=== PATIENT | male | born 1965 | race Caucasian/White ===

== ENCOUNTER 2022-09-06 14:00 | Inpatient (IN) ==
[2022-09-18] MEDS ORDERED: Lactated Ringers 1000 ml BAG 1,000 ML IV SCH (06:00)
[2022-09-18] MEDS ORDERED: Buffered Lidocaine 1% SYRIN 1 ml INTRADERM ONE (06:00)
[2022-09-18] MEDS ORDERED: ceFAZolin 2 GM in NS PREMIX 2 GM/100 ML BAG IVPB ONE (08:27)
[2022-09-18] MEDS ORDERED: ROPIVACAINE 5 MG/ML 30 ML BTL (0.5%) ONE (09:15)
[2022-09-18] MEDS ORDERED: Naloxone 0.4 mg VIAL 0.4 mg/ml 1 ml VIAL IV PRN (09:40)
[2022-09-18] MEDS ORDERED: Midazolam 5 mg/5 ml VIAL 1 mg/ml 5 ml VIAL (5 mg) ONE (09:47)
[2022-09-18] MEDS ORDERED: Phenylephrine IV 10 MG/ML 1 ml VIAL ONE (10:09)
[2022-09-18] MEDS ORDERED: Lidocaine 2% PF 5 ML VIAL ONE (10:09)
[2022-09-18] MEDS ORDERED: Ropivacaine 5 MG/ML 20 ML VIAL 0.5% (100 MG) ONE (10:36)
[2022-09-18] MEDS ORDERED: Propofol 10 MG/ML 20 ML BTL ONE ×2 (11:04→11:22)
[2022-09-18] MEDS ORDERED: Ondansetron ODT 4 mg TAB 4 MG TAB PO PRN (11:09)
[2022-09-18] MEDS ORDERED: Lactulose 30 ml UDC PO PRN (11:09)
[2022-09-18] MEDS ORDERED: Magnesium Hydroxide LIQ 30 ML UDC PO PRN (11:09)
[2022-09-18] MEDS ORDERED: Morphine 2 MG/ML SYRINGE IV PRN (11:09)
[2022-09-18] MEDS ORDERED: Ondansetron 4 mg VIAL 2 MG/ML 2 ml VIAL IV PRN (11:09)
[2022-09-18] MEDS ORDERED: Dexamethasone IV 4 MG/ML VIAL 1 ml VIAL ONE (11:33)
[2022-09-18] MEDS ORDERED: Ondansetron 4 mg VIAL 2 MG/ML 2 ml VIAL ONE (11:33)
[2022-09-18] MEDS ORDERED: Acetaminophen IV 1 GM/100ML 1,000 MG/100 ML BAG IV ONE (12:50)
[2022-09-18] MEDS ORDERED: HYDROmorphone 1 MG/1 ML SYRINGE ONE (13:28)
[2022-09-18] MEDS: HYDROmorphone 1 MG/1 ML SYRINGE IV PRN ×4 (13:32→14:04)
[2022-09-18] MEDS ORDERED: fentaNYL 100 mcg/2 ml 50 MCG/ML VIAL IV SLOW PU ONE (14:39)
[2022-09-18] MEDS ORDERED: fentaNYL 100 mcg/2 ml 50 MCG/ML VIAL ONE (14:41)
[2022-09-18] MEDS: Lactated Ringers 1000 ml BAG 1,000 ML IV SCH (16:40)
[2022-09-18] MEDS: ceFAZolin 1 GM ADVAN 1 GM in NS 0.9% 50 ML 50 ML IVPB SCH (19:00)
[2022-09-18] MEDS: Magnesium Hydroxide LIQ 30 ML UDC PO SCH (20:52)
[2022-09-19] MEDS: ceFAZolin 1 GM ADVAN 1 GM in NS 0.9% 50 ML 50 ML IVPB SCH ×2 (02:52→10:00)
[2022-09-19] MEDS: Lactated Ringers 1000 ml BAG 1,000 ML IV SCH (02:55)
[2022-09-19 06:06] LABS: Hematocrit 36 % (42-52); Hemoglobin 12.1 g/dL (14.0-18.0); Platelet Count 357 10^3/uL (150-450)
[2022-09-19 06:26] LABS: Calcium 9.1 mg/dL (8.6-10.3); Creatinine, Serum 0.66 mg/dL (0.67-1.17); Potassium 4.1 mmol/L (3.5-5.0); eGFR CKD-EPI 110.8 (>60)
[2022-09-19] MEDS: Magnesium Hydroxide LIQ 30 ML UDC PO SCH (08:15)
[2022-09-19] MEDS ORDERED: Vitamin THERAPEUTIC TAB PO SCH (09:00)
[2022-09-19 11:16] VITALS: BP 143/85
== END 2022-09-19 13:22 | disposition home or self-care (01) | DRG 302 ==
LOC: AA 09-18 07:59 → INTOOBSV 09-18 07:59 → SSU 09-18 15:46
PROVIDERS: ADMIT Orthopaedic Surgery Adult Reconstructive Orthopaedic Surgery; ATTEND Orthopaedic Surgery Adult Reconstructive Orthopaedic Surgery